=== PATIENT | female | born 1975 | race Caucasian/White ===

== ENCOUNTER → 2016-10-06 | Day surgery (SDC) | payer BC ==
[~2016-10-06] MED LIST: ASPI-630 PO; BUDE10.2 IH; CRESTOR10 MG PO; ESOM20CA PO; FLUT9.9S NS; IV RINGERS,LACTATED 1000ML 1,000 ML IV SCH; LEVO50TA5 PO; LIDOCAINE 1% 1 ML SYRINGE. ID PRN; LIDOCAINE 2% PF Vial for OR 5 ML VIAL. ONE; MIDAZOLAM HCL/PF 2 MG/2 ML VIAL. IV PRN; MONT10TA9 PO; PROPOFOL 40 ML IV ONE; RANI150T6 PO; fentaNYL PF VIAL 100 MCG/2 ML VIAL IV PRN
[2016-10-06 08:51] LABS: NEG OBC UR NEG; POS OBC UR POS
[2016-10-06 10:38] VITALS: BP 140/70
--- NOTE | 2016-10-10 16:35 | PATHOLOGY ---
PATHOLOGY REPORT * * * * * * * * FINAL DIAGNOSIS: A. Small bowel biopsy: - No significant pathologic abnormalities. B. Gastric biopsy, antrum: - Segment of duodenal mucosa showing mild chronic inflammation. C. Esophageal biopsy, distal esophagus: - Segments of gastric mucosa showing chronic inflammation and small segment of squamous esophageal mucosa. D. Terminal ileum biopsy: - Non-specific ileitis, mild, with mucosal associated lymphoid tissue. E. Colon biopsies, right colon: - No significant pathologic abnormalities. F. Colon biopsies, left colon: - No significant pathologic abnormalities. COMMENT: Sections of the small bowel biopsy reveal a segment of small intestinel mucosa. Where best oriented, the mucosal villi appear normal and show no sprue-like changes or significant inflammatory changes. Sections of the gastric antral biopsy reveal duodenal mucosa showing mild chronic inflammation. There is no gastric mucosa identified. An immunoperoxidase stain for Helicobacter is obtained. There are no Helicobacter organisms identified. Sections of the distal esophageal biopsy reveal three segments of gastric mucosa showing mild chronic inflammation. There is also a small segment of squamous esophageal mucosa. There is no evidence of Mao's change, dysplasia, or malignancy. Sections of the terminal ileum biopsy reveal small intestine mucosa containing mucosal-associated lymphoid tissue which shows congestion and non-specific, mild to moderate, active chronic inflammation. There are no granulomas or specific features. Sections of the right colon and left colon biopsies appear similar and reveal segments of colonic mucosa containing a few small mucosal-associated lymphoid aggregates. There is no evidence of a chronic destructive colitis, lymphocytic colitis, or collagenous colitis. Special stain performed: Immunoperoxidase for Helicobacter on B1. REPORT ELECTRONICALLY SIGNED BY: Gino Sales M.D. DATE/TIME: 10/10/2016 16:35 * * * * * * * * GROSS PATHOLOGY: A. Received in formalin labeled "Kemi Sullivan, small bowel biopsy," is a segment of galvin soft tissue measuring 0.4 cm in maximum dimension. The specimen is submitted entirely in cassette A1. B. Received in formalin labeled "Kemi Sullivan, gastric biopsy antrum," is a segment of galvin soft tissue measuring 0.4 cm in maximum dimension. The specimen is submitted entirely in cassette B1. C. Received in formalin labeled "Kemi Sullivan, distal esophagus," are 2 segments of galvin soft tissue measuring 0.4 x 0.2 x 0.2 cm in aggregate dimensions and ranging from 0.2 to 0.3 cm in maximum dimension. The specimen is submitted entirely in cassette C1. D. Received in formalin labeled "Kemi Sullivan, terminal ileum biopsy," is a segment of galvin soft tissue measuring 0.5 cm in maximum dimension. The specimen is submitted entirely in cassette D1. E. Received in formalin labeled "Kemi Sullivan, right colon biopsy," are 5 segments of galvin soft tissue measuring 0.6 x 0.5 x 0.2 cm in aggregate dimensions and ranging from 0.2 to 0.5 cm in maximum dimension. The specimen is submitted entirely in cassette E1. F. Received in formalin labeled "Kemi Sullivan, left colon biopsy," are 5 segments of galvin soft tissue measuring 0.6 x 0.4 x 0.2 cm in aggregate dimensions and ranging from 0.2 to 0.4 cm in maximum dimension. The specimen is submitted entirely in cassette F1. ([facility]; 10/07/2016) INITIAL CPT CODE(S): A; 05005 B; 82971, 02512 C; 07960 D; 50697 E; 94490 F; 55723 Professional services performed [place] [facility] [place] [address] Technical services performed by [facility] at [address] [place] [address], [id number] [address]. SPECIMEN(S) RECEIVED: A.Small bowel biopsy B.Gastric antrum biopsy C.Distal esophageal biopsy D.Terminal ileum biopsy E.Right colon biopsy F.Left colon biopsy CLINICAL HISTORY: Reflux, IBS PATIENT: KEMI SULLIVAN /AGE: 711/18/1975 (Age: 40) PATIENT #: [id number] ALT CASE #: SPECIMEN COLLECTION DATE: 10/06/2016 SPECIMEN RECEIVED DATE: 10/06/2016 [facility] - [address] [place] [address] - PHONE: [phone] * * * END OF REPORT * * *
== END | disposition home or self-care (01) ==
LOC: ENDOS 08:19
PROVIDERS: ATTEND Internal Medicine Gastroenterology
DX: K63.3 Ulcer of intestine (principal); K21.0 Gastro-esophageal reflux disease with esophagitis; K31.89 Other diseases of stomach and duodenum; K64.0 First degree hemorrhoids; K74.60 Unspecified cirrhosis of liver; J45.909 Unspecified asthma, uncomplicated; E03.9 Hypothyroidism, unspecified; Z90.49 Acquired absence of other specified parts of digestive tract; Z86.39 Personal history of other endocrine, nutritional and metabolic disease
CPT/HCPCS: 43239; 45380; 81025; 88305; 88342; J2704